=== PATIENT | female | born 1950 | race Caucasian/White ===

== ENCOUNTER 2021-03-16 15:06 | Emergency (ER) | payer BC, MEDICARE ==
[2021-03-16] MEDS ORDERED: methylPREDNISolone Sodium Succinate 40 MG/1 ML SDV IM ONE (15:38)
--- NOTE | 2021-03-16 15:41 | EDM.PDOC ---
ED HPI GENERAL MEDICAL PROBLEM - General Chief Complaint: Lower Extremity Injury/Pain Stated Complaint: RIGHT BIG TOE GOUT Time Seen by Provider: 03/16/21 15:38 - History of Present Illness INITIAL COMMENTS - FREE TEXT/NARRATIVE: Dinah is a 70-year-old woman with history of gout, with a recurrence in her right great toe. She states that she last had a flareup of this last May. She reports that her toes been very painful today, she is not able to tolerate even any pressure on it. She is not on any kind of daily controller medication for this. She has had no fevers or chills, no nausea or vomiting. Right Toe-Hailux Pain Score (Numeric/FACES): 6 - Related Data Allergies Allergy/AdvReac Type Severity Reaction Status Date / Time shellfish derived Allergy Nausea Verified 03/16/21 15:21 sulfamethoxazole Allergy Anaphylactic Verified 03/16/21 15:21 [From ] Shock trimethoprim [From ] Allergy Anaphylactic Verified 03/16/21 15:21 Shock Home Meds: Home Meds Indomethacin [Indomethacin ER] 75 mg PO BID PRN 3 Days #6 capsule.er 03/16/21 [Rx] Past Medical History HEENT History: Reports: Cataract, Impaired Vision Other HEENT History: glasses for reading Cardiovascular History: Reports: Heart Failure Respiratory History: Reports: None Gastrointestinal History: Reports: Cholelithiasis Genitourinary History: Reports: None [employer] History: Reports: None Musculoskeletal History: Reports: Arthritis, Gout Neurological History: Reports: None Psychiatric History: Reports: None Endocrine/Metabolic History: Reports: Diabetes, Type II, Obesity/BMI 30+ Hematologic History: Reports: None Immunologic History: Reports: None Oncologic (Cancer) History: Reports: None Dermatologic History: Reports: None - Infectious Disease History Infectious Disease History: Reports: Chicken Pox, Measles, Mumps - Past Surgical History Head Surgeries/Procedures: Reports: None HEENT Surgical History: Reports: Cataract Surgery, Tonsillectomy GI Surgical History: Reports: Cholecystectomy, Hernia Repair/Other Other GI Surgeries/Procedures: by pass of common bile duct Musculoskeletal Surgical History: Reports: Hip Replacement, Knee Replacement, Shoulder Surgery Social & Family History - Tobacco Use Tobacco Use Status *Q: Never Tobacco User Second Hand Smoke Exposure: No - Caffeine Use Caffeine Use: Reports: Coffee - Recreational Drug Use Recreational Drug Use: No Review of Systems - Review of Systems Review Of Systems: Comprehensive ROS is negative, except as noted in HPI. ED EXAM, GENERAL - Physical Exam Exam: See Below Free Text/Narrative:: General: Dinah is a 70-year-old woman in no acute distress Right great toe: Severe erythema as well as significant swelling over that interphalangeal joint. No erythema or streaking of the foot. Per history given by the patient, she has had good relief with a single injection of Solu-Medrol in the past for her gout. She is asking for this today Course - Vital Signs Last Recorded V/S: Last Vital Signs Temp 96.3 F L 03/16/21 15:15 Pulse 67 03/16/21 15:15 Resp 16 03/16/21 15:15 BP 142/84 H 03/16/21 15:15 Pulse Ox 98 03/16/21 15:15 - Orders/Labs/Meds Meds: Medications Discontinued Medications Generic Name Dose Route Start Last Admin Trade Name Freq PRN Reason Stop Dose Admin Methylprednisolone Sodium Succinate 40 mg 03/16/21 15:38 03/16/21 16:02 Methylprednisolone Sodium Succinate 40 Mg/1 Ml Sdv IM 03/16/21 15:39 40 mg ONETIME ONE Administration Departure - Departure Time of Disposition: 16:00 Disposition: Home, Self-Care 01 Clinical Impression: Acute gout - Discharge Information *PRESCRIPTION DRUG MONITORING PROGRAM REVIEWED*: Not Applicable *COPY OF PRESCRIPTION DRUG MONITORING REPORT IN PATIENT [facility]: Not Applicable Prescriptions: Indomethacin [Indomethacin ER] 75 mg PO BID PRN 3 Days #6 capsule.er PRN Reason: Pain Instructions: Low-Purine Eating Plan Forms: ED Department Discharge Sepsis Event Note (ED) - Evaluation Sepsis Screening Result: No Definite Risk - Problem List & Annotations (1) Acute gout SNOMED Code(s): 205331552 Code(s): M10.9 - GOUT, UNSPECIFIED Status: Acute - Problem List Review Problem List Initiated/Reviewed/Updated: Yes - Assessment/Plan Assessment:: 1. Acute gout Plan: 1. As above, she states she has had good relief from no Solu-Medrol injections that she has gotten. Hopefully to 1 given today we will give her that same relief. I will send her home with a prescription for indomethacin just in case her pain is not controlled. She will follow-up with her primary care physician if she is not improving
== END 2021-03-16 16:12 | disposition home or self-care (01) ==
LOC: DL.ED 15:06
DX: M10.071 Idiopathic gout, right ankle and foot (principal); I50.9 Heart failure, unspecified; E11.9 Type 2 diabetes mellitus without complications; E66.9 Obesity, unspecified; Z68.30 Body mass index [BMI] 30.0-30.9, adult; Z88.1 Allergy status to other antibiotic agents; Z91.013 Allergy to seafood
CPT/HCPCS: 96372; 99283; J2920